=== PATIENT | male | born 1995 | race Caucasian/White ===

== ENCOUNTER 2016-09-08 22:42 | Emergency (ER) | payer OTHER ==
[~2016-09-08] VITALS: Ht 170.2 cm; Wt 81.6 kg
[~2016-09-08 22:42] MED LIST: MOTRIN800 MG PO
[2016-09-08 22:54] VITALS: BP 119/69
--- NOTE | 2016-09-09 00:19 | NUR ---
TO ER BED 5
--- NOTE | 2016-09-09 00:33 | NUR ---
21 Y/O M W/C/O MULTIPLE LACERATION ON HIS LEFT HAND, GLASS WINDOWS FELL ON HIM AT 1600HOURS , BLEEDING WAS CONTROLLED AT THIS TIME. NO S/S OF DISTRESS NOTED AT THE MOMENT. ER MADE AWARE.
[2016-09-09] MEDS ORDERED: LIDOCAINE/EPI 1% 1:100000 20 ML VIAL INJ ONE (00:45)
[2016-09-09] MEDS ORDERED: BACITRACIN OINT 500 UNITS/GM PKT TP ONE (00:46)
[2016-09-09] MEDS ORDERED: MORPHINE SULFATE 10 MG/ML SYR IVP ONE (00:55)
[2016-09-09] MEDS ORDERED: NACL 0.9% 1,000 ML IV ONE (00:55)
[2016-09-09] MEDS ORDERED: NEOMYCIN/POLYMYXIN/BACITRACIN 0.9 GM/1 PKT TP ONE (01:57)
[2016-09-09] MEDS ORDERED: ceFAZolin 1,000 MG VIAL ONE (02:37)
[2016-09-09 03:18] VITALS: BP 132/72
--- NOTE | 2016-09-09 03:18 | NUR ---
Patient discharged BY ER MD with v/s stable. Written and verbal after care instructions given and explained TO PT BY DR MONTIEL. Patient alert, oriented and verbalized understanding of instructions. Ambulatory with steady gait. All questions addressed prior to discharge. ID band removed. Patient advised to follow up with PMD OR RETURN TO ER IF CONDITION WORSENS. Rx of NAPROSYN, AND KEFLEX given. Patient educated on indication of medication including possible reaction and side effects. Opportunity to ask questions provided and answered.
== END 2016-09-09 03:18 | disposition home or self-care (01) ==
LOC: MED 22:42
DX: S51.812A Laceration without foreign body of left forearm, initial encounter (principal); W20.8XXA Other cause of strike by thrown, projected or falling object, initial encounter; Y93.89 Activity, other specified; Y92.89 Other specified places as the place of occurrence of the external cause; Y99.8 Other external cause status
CPT/HCPCS: 12002; 73120; 90471; 90715; 96361; 96365; 96375; 99284; J0690; J2001; J2270; J7030; J7060; Q0092

== ENCOUNTER 2021-01-19 19:56 | Emergency (ER) | payer OTHER ==
[~2021-01-19] VITALS: Ht 175.3 cm; Wt 90.7 kg
[~2021-01-19 19:56] MED LIST changes: +IBUP-974 PO; -MOTRIN800 MG PO
[2021-01-19 20:40] VITALS: BP 132/67
--- NOTE | 2021-01-19 20:43 | NUR ---
TO LOBBY A/W BED AMBULATORY
--- NOTE | 2021-01-19 23:30 | NUR ---
PT CALLED IN LOBBY AND OUTSIDE WITH NO ANSWER.
--- NOTE | 2021-01-19 23:40 | NUR ---
PT CALLED IN LOBBY AND OUTSIDE WITH NO ANSWER.
--- NOTE | 2021-01-19 23:50 | NUR ---
PT CALLED IN LOBBY AND OUTSIDE WITH NO ANSWER.
== END 2021-01-19 23:30 | disposition left against medical advice (07) ==
LOC: MED 19:56
DX: N48.89 Other specified disorders of penis (principal); Z53.21 Procedure and treatment not carried out due to patient leaving prior to being seen by health care provider

== ENCOUNTER 2021-12-03 03:46 | Emergency (ER) | payer OTHER ==
[~2021-12-03] VITALS: Ht 175.3 cm; Wt 99.8 kg
--- NOTE | 2021-12-03 03:54 | NUR ---
PT TAKEN TO BED 3
[2021-12-03 03:55] VITALS: BP 120/69
--- NOTE | 2021-12-03 04:11 | NUR ---
26 y/o male bib self for c/o urinary burning and difficulty x 1 week. per patient redness and bumps noted around foreskin of penis. pt also states "bump pops out" around pelvic area and wants to r/o hernia. pt states "they look like little blisters that pop." Burnig with urination, denies blood in urine, no change in frequency or urge. a/ox4; unlabored breathing; ambulatory. medhx: denies nka
--- NOTE | 2021-12-03 04:38 | NUR ---
Dr. Maza examining patient.
[2021-12-03] MEDS ORDERED: cefTRIAXone 500 MG in LIDOCAINE MPF 1% 1 ML IM ONE (04:55)
[2021-12-03] MEDS ORDERED: AZITHROMYCIN 250 MG TAB PO ONE (04:55)
[2021-12-03 05:01] LABS: APPEARANCE,URINE CLEAR (CLEAR); BILIRUBIN,URINE NEGATIVE (NEGATIVE); BLOOD, URINE NEGATIVE (NEGATIVE); COLOR,URINE YELLOW (YELLOW); LEUKOCYTE ESTERASE ,URINE NEGATIVE (NEGATIVE); NITRITE, URINE NEGATIVE (NEGATIVE); UGLUCOSE NEGATIVE (NEGATIVE)
[2021-12-03] MEDS ORDERED: cefTRIAXone 500 MG VIAL ONE (05:14)
[2021-12-03] MEDS ORDERED: LIDOCAINE MPF 1% 5 ML ONE (05:14)
[2021-12-03] MEDS ORDERED: DOXY-487 PO (05:42)
--- NOTE | 2021-12-03 07:19 | NUR ---
GAVE TRANSFER OF CARE REPORT TO LACHELLE OLIVAS
--- NOTE | 2021-12-03 07:20 | NUR ---
received report from Jh LAROSE. patient calm and resting vitals stable. family at bedside.
--- NOTE | 2021-12-03 08:10 | NUR ---
Patient discharged with v/s stable. Written and verbal after care instructions given and explained. Patient alert, oriented and verbalized understanding of instructions. Ambulatory with steady gait. All questions addressed prior to discharge. ID band removed. Patient advised to follow up with PMD. Rx of atbx given. Patient educated on indication of medication including possible reaction and side effects. Opportunity to ask questions provided and answered.
[2021-12-03 08:15] VITALS: BP 126/67
== END 2021-12-03 08:15 | disposition home or self-care (01) ==
LOC: MED 03:46
DX: A57 Chancroid (principal); R59.1 Generalized enlarged lymph nodes
CPT/HCPCS: 74176; 81003; 87491; 96372; 99284; J0696; J2001; 99283